=== PATIENT | female | born 1995 | race Caucasian/White ===

== ENCOUNTER 2023-01-05 09:53 | Outpatient (OUT) | payer OTHER, SELFPAY ==
[2023-01-05 10:44] LABS: Erythrocyte Sedimentation Rate 30 mm/hr (<=20)
[2023-01-05 11:11] LABS: Thyroid Stimulating Hormone 0.725 uIU/mL (0.358-3.740)
[2023-01-05 14:45] LABS: C. Difficile PCR NEGATIVE (NEGATIVE)
[2023-01-06 11:07] LABS: HIV Ab/p24 Ag Screen Non Reactive (Non Reactive)
[2023-01-08 14:08] LABS: Deamidated Gliadin Abs, IgA 3 units (0-19); Deamidated Gliadin Abs, IgG 2 units (0-19); Endomysial Antibody IgA Negative (Negative); Immunoglobulin A, Qn, Serum 172 mg/dL (87-352); t-Transglutaminase (tTG) IgA <2 U/mL (0-3); t-Transglutaminase (tTG) IgG 2 U/mL (0-5)
[2023-01-10 14:09] LABS: Calprotectin, Fecal 9 ug/g (0-120)
[2023-01-10 20:07] LABS: Pancreatic Elastase, Fecal 264 (>200)
[2023-01-16 18:07] LABS: Ova + Parasite Exam Final report (.)
== END 2023-01-05 09:54 | disposition home or self-care (01) ==
LOC: LAB 01-11 09:53
DX: R19.7 Diarrhea, unspecified (principal)
CPT/HCPCS: 36415; 82656; 83993; 84443; 85652; 86140; 87045; 87177; 87209; 87389; 87493